=== PATIENT | male | born 1975 | race Caucasian/White ===

== ENCOUNTER 2022-01-01 10:47 | Emergency (ER) | payer MEDICAID ==
[~2022-01-01] VITALS: Ht 170.2 cm; Wt 84.4 kg
[2022-01-01 11:36] VITALS: BP 128/80
[2022-01-01 12:20] LABS: Alcohol, Urine < 3.0 mg/dL (0-10); Amphetamine Screen, Urine POSITIVE (NEGATIVE); Barbiturate Scree,Urine NEGATIVE (NEGATIVE); Benzodiazephine Screen, Urine NEGATIVE (NEGATIVE); Cannabinoid Screen, Urine NEGATIVE (NEGATIVE); Cocaine Screen, Urine NEGATIVE (NEGATIVE); Opiate Scree,Urine NEGATIVE (NEGATIVE); Phencyclidine Screen, Urine NEGATIVE (NEGATIVE)
[2022-01-01 12:28] LABS: Basophils # (auto) 0 10 ^3/uL (0-0.2); Basophils % (auto) 0.4 % (0.0-2.0); Eosinophils # (auto) 0.2 10 ^3/uL (0-0.8); Eosinophils % (auto) 3.1 % (0.0-7.0); Hematocrit 41.7 % (41.0-53.0); Hemoglobin 14.1 g/dL (13.5-17.5); Lymphocytes # (auto) 0.8 10 ^3/uL (0.4-5.4); Lymphocytes % (auto) 12.7 % (10.0-50.0); Mean Corpuscular Hemoglobin 31.7 pg (28.0-32.0); Mean Corpuscular Hgb Conc. 33.7 g/dL (32.0-36.0); Mean Corpuscular Volume 93.9 fL (80.0-100.0); Monocytes # (auto) 0.6 10 ^3/uL (0-1.3); Monocytes % (auto) 9.3 % (0.0-12.0); Neutrophils # (auto) 4.4 10 ^3/uL (1.6-8.6); Neutrophils % (auto) 74.5 % (37.0-80.0); Nucleated Red Blood Cells % 0.1 %; Red Blood Cells 4.44 10^6/uL (4.5-5.90); Red Cell Distribution Width 15.8 % (11.8-14.3)
[2022-01-01 12:43] LABS: Albumin 2.2 g/dL (3.4-5.0); BUN/Creatinine Ratio 7.1; Calcium 7.6 mg/dL (8.5-10.1)
[2022-01-01 12:46] LABS: Total Protein 7.3 g/dL (6.4-8.2)
[2022-01-01 14:05] LABS: Albumin 2.2 g/dL (3.4-5.0)
[2022-01-01 14:08] LABS: Bilirubin, Direct 3.1 mg/dL (0-0.2); Total Protein 7.5 g/dL (6.4-8.2)
== END 2022-01-01 13:46 | disposition home or self-care (01) ==
LOC: ER 10:47
DX: L98.8 Other specified disorders of the skin and subcutaneous tissue (principal); F15.10 Other stimulant abuse, uncomplicated; Z86.19 Personal history of other infectious and parasitic diseases
CPT/HCPCS: 36415; 80053; 80076; 80307; 85025; 86592

== ENCOUNTER → 2022-01-11 | Emergency (ER) | payer MEDICAID ==
[~2022-01-11] VITALS: Ht 175.3 cm; Wt 89.2 kg
[2022-01-11 18:59] VITALS: BP 129/73
== END | disposition left against medical advice (07) ==
LOC: ER 18:35
DX: R21 Rash and other nonspecific skin eruption (principal); R22.43 Localized swelling, mass and lump, lower limb, bilateral; Z53.21 Procedure and treatment not carried out due to patient leaving prior to being seen by health care provider

== ENCOUNTER 2022-02-09 15:20 | Inpatient (IN) | payer MEDICAID ==
[~2022-02-09] VITALS: Ht 172.7 cm; Wt 94.0 kg
[2022-02-09 16:59] LABS: Basophils # (auto) 0.1 10 ^3/uL (0-0.2); Eosinophils # (auto) 0.2 10 ^3/uL (0-0.8); Eosinophils % (auto) 4.9 % (0.0-7.0); Hemoglobin 13.1 g/dL (13.5-17.5); Lymphocytes # (auto) 1.3 10 ^3/uL (0.4-5.4); Lymphocytes % (auto) 25.5 % (10.0-50.0); Mean Corpuscular Hemoglobin 33.6 pg (28.0-32.0); Mean Corpuscular Hgb Conc. 34.4 g/dL (32.0-36.0); Mean Corpuscular Volume 97.6 fL (80.0-100.0); Monocytes # (auto) 0.6 10 ^3/uL (0-1.3); Monocytes % (auto) 11.2 % (0.0-12.0); Neutrophils # (auto) 2.9 10 ^3/uL (1.6-8.6); Neutrophils % (auto) 57.4 % (37.0-80.0); Nucleated Red Blood Cells % 0.1 %; Red Cell Distribution Width 17.3 % (11.8-14.3)
[2022-02-09 17:22] LABS: Albumin 2.2 g/dL (3.4-5.0); Calcium 7.8 mg/dL (8.5-10.1); Potassium 4.2 mmol/L (3.5-5.1)
[2022-02-09 17:24] LABS: BUN/Creatinine Ratio 12.5
[2022-02-09 17:27] LABS: Bilirubin, Total 2.9 mg/dL (0.2-1.0); Total Protein 6.7 g/dL (6.4-8.2)
[2022-02-09] MEDS ORDERED: ACETAMINOPHEN 325 MG TAB PO PRN (19:00)
[2022-02-09] MEDS ORDERED: FUROSEMIDE 40 MG/4 ML VIAL IV ONE (19:30)
[2022-02-09 19:56] LABS: INR 1.39 (0.9-1.15)
[2022-02-10] MEDS: SODIUM CHLOR 0.9% PF (SALINE LOCK) 10ML VIAL/SYR IV SCH ×4 (00:24→22:18)
[2022-02-10 04:00] VITALS: BP 126/93
[2022-02-10 06:49] LABS: Eosinophils # (auto) 0.2 10 ^3/uL (0-0.8); Hemoglobin 11.4 g/dL (13.5-17.5); Lymphocytes # (auto) 1.3 10 ^3/uL (0.4-5.4); Mean Corpuscular Hemoglobin 34.1 pg (28.0-32.0); Monocytes # (auto) 0.5 10 ^3/uL (0-1.3); Red Cell Distribution Width 16.9 % (11.8-14.3); White Blood Cell 4.8 10^3/uL (4.4-10.8)
[2022-02-10 06:51] LABS: Basophils # (auto) 0 10 ^3/uL (0-0.2); Basophils % (auto) 0.9 % (0.0-2.0); Eosinophils % (auto) 3.7 % (0.0-7.0); Hematocrit 31.9 % (41.0-53.0); Lymphocytes % (auto) 27.7 % (10.0-50.0); Mean Corpuscular Hgb Conc. 35.7 g/dL (32.0-36.0); Mean Corpuscular Volume 95.4 fL (80.0-100.0); Monocytes % (auto) 11.2 % (0.0-12.0); Neutrophils # (auto) 2.7 10 ^3/uL (1.6-8.6); Neutrophils % (auto) 56.5 % (37.0-80.0); Nucleated Red Blood Cells % 0.1 %; Red Blood Cells 3.34 10^6/uL (4.5-5.90)
[2022-02-10 06:52] LABS: Albumin 1.9 g/dL (3.4-5.0); Calcium 7.7 mg/dL (8.5-10.1); Potassium 3.5 mmol/L (3.5-5.1)
[2022-02-10 06:55] LABS: Bilirubin, Total 2.9 mg/dL (0.2-1.0); Total Protein 5.9 g/dL (6.4-8.2)
[2022-02-10 08:40] VITALS: BP 130/79
[2022-02-10 13:00] VITALS: BP 125/80
[2022-02-10 17:27] VITALS: BP 125/79
[2022-02-10 22:00] VITALS: BP 135/87
[2022-02-11 05:00] VITALS: BP 133/82
[2022-02-11] MEDS: SODIUM CHLOR 0.9% PF (SALINE LOCK) 10ML VIAL/SYR IV SCH ×3 (05:21→22:34)
[2022-02-11] MEDS ORDERED: PENICILLIN G BENZ 1200000 UNITS/2 ML SYRG IM ONE (08:30)
[2022-02-11 09:08] VITALS: BP 118/75
[2022-02-11 09:09] LABS: Basophils # (auto) 0.1 10 ^3/uL (0-0.2); Basophils % (auto) 1.2 % (0.0-2.0); Eosinophils # (auto) 0.2 10 ^3/uL (0-0.8); Eosinophils % (auto) 4.3 % (0.0-7.0); Hematocrit 34.7 % (41.0-53.0); Hemoglobin 12.1 g/dL (13.5-17.5); Lymphocytes # (auto) 0.9 10 ^3/uL (0.4-5.4); Mean Corpuscular Hemoglobin 33.5 pg (28.0-32.0); Mean Corpuscular Hgb Conc. 34.9 g/dL (32.0-36.0); Monocytes # (auto) 0.4 10 ^3/uL (0-1.3); Monocytes % (auto) 9.4 % (0.0-12.0); Neutrophils # (auto) 2.9 10 ^3/uL (1.6-8.6); Neutrophils % (auto) 64.1 % (37.0-80.0); Nucleated Red Blood Cells % 0.1 %; Red Blood Cells 3.62 10^6/uL (4.5-5.90); Red Cell Distribution Width 16.6 % (11.8-14.3); White Blood Cell 4.5 10^3/uL (4.4-10.8)
[2022-02-11 09:29] LABS: INR 1.44 (0.9-1.15); Partial Thromboplastin Time 38.5 sec (24.6-33.4)
[2022-02-11 09:33] LABS: Albumin 1.9 g/dL (3.4-5.0); Calcium 7.6 mg/dL (8.5-10.1); Potassium 3.6 mmol/L (3.5-5.1)
[2022-02-11 09:38] LABS: BUN/Creatinine Ratio 15.2; Bilirubin, Total 3.1 mg/dL (0.2-1.0); Total Protein 6.2 g/dL (6.4-8.2)
[2022-02-11 13:00] VITALS: BP 127/80
[2022-02-11] MEDS: ACYCLOVIR 400 MG TAB PO SCH ×2 (14:19→22:35)
[2022-02-11] MEDS: traMADol HCL 50 MG TAB PO PRN (14:19)
[2022-02-11] MEDS: LACTULOSE 20Gm/30ML SOLN PO SCH ×2 (14:20→22:35)
[2022-02-11 17:17] VITALS: BP 145/83
[2022-02-11] MEDS ORDERED: guaiFENesin-DM 100/10mg/5ml SYR PO PRN (20:45)
[2022-02-11 22:00] VITALS: BP 119/85
[2022-02-12 05:00] VITALS: BP 130/74
[2022-02-12 05:34] LABS: Basophils # (auto) 0 10 ^3/uL (0-0.2); Basophils % (auto) 0.9 % (0.0-2.0); Eosinophils # (auto) 0.2 10 ^3/uL (0-0.8); Eosinophils % (auto) 3.7 % (0.0-7.0); Hematocrit 34.1 % (41.0-53.0); Hemoglobin 12.1 g/dL (13.5-17.5); Lymphocytes # (auto) 1.3 10 ^3/uL (0.4-5.4); Mean Corpuscular Hemoglobin 33.7 pg (28.0-32.0); Mean Corpuscular Hgb Conc. 35.5 g/dL (32.0-36.0); Mean Corpuscular Volume 94.9 fL (80.0-100.0); Monocytes # (auto) 0.5 10 ^3/uL (0-1.3); Monocytes % (auto) 10.6 % (0.0-12.0); Neutrophils # (auto) 2.7 10 ^3/uL (1.6-8.6); Neutrophils % (auto) 57.8 % (37.0-80.0); Nucleated Red Blood Cells % 0.2 %; Red Cell Distribution Width 16.3 % (11.8-14.3); White Blood Cell 4.7 10^3/uL (4.4-10.8)
[2022-02-12] MEDS: SODIUM CHLOR 0.9% PF (SALINE LOCK) 10ML VIAL/SYR IV SCH ×3 (05:40→22:11)
[2022-02-12] MEDS: ACYCLOVIR 400 MG TAB PO SCH ×3 (05:41→22:15)
[2022-02-12 05:45] LABS: Albumin 1.9 g/dL (3.4-5.0); Calcium 7.7 mg/dL (8.5-10.1); Magnesium 2.2 mg/dL (1.6-2.6); Potassium 3.8 mmol/L (3.5-5.1)
[2022-02-12 05:48] LABS: Bilirubin, Total 3.5 mg/dL (0.2-1.0)
[2022-02-12 09:00] VITALS: BP 122/83
[2022-02-12] MEDS: traMADol HCL 50 MG TAB PO PRN ×2 (09:31→23:18)
[2022-02-12] MEDS: LACTULOSE 20Gm/30ML SOLN PO SCH ×2 (09:32→22:15)
[2022-02-12 12:45] VITALS: BP 118/83
[2022-02-12 17:25] VITALS: BP 164/83
[2022-02-12 21:16] VITALS: BP 133/89
[2022-02-13 05:00] VITALS: BP 132/87
[2022-02-13] MEDS: ACYCLOVIR 400 MG TAB PO SCH ×3 (05:42→22:02)
[2022-02-13] MEDS: SODIUM CHLOR 0.9% PF (SALINE LOCK) 10ML VIAL/SYR IV SCH ×3 (05:42→22:02)
[2022-02-13 09:00] VITALS: BP 120/88
[2022-02-13] MEDS: LACTULOSE 20Gm/30ML SOLN PO SCH ×2 (10:15→22:02)
[2022-02-13 13:00] VITALS: BP 123/80
[2022-02-13 17:00] VITALS: BP 133/89
[2022-02-13] MEDS ORDERED: LIDOCAINE VISCOUS 2% 15ML UD MT PRN (21:00)
[2022-02-13 22:00] VITALS: BP 127/79
[2022-02-14 05:00] VITALS: BP 138/99
[2022-02-14] MEDS: ACYCLOVIR 400 MG TAB PO SCH ×2 (05:52→14:00)
[2022-02-14] MEDS: SODIUM CHLOR 0.9% PF (SALINE LOCK) 10ML VIAL/SYR IV SCH ×2 (05:52→14:00)
[2022-02-14 08:10] VITALS: BP 116/70
[2022-02-14] MEDS: LACTULOSE 20Gm/30ML SOLN PO SCH (09:22)
[2022-02-14 11:23] LABS: Albumin 1.8 g/dL (3.4-5.0); Anion Gap 7 (5-15); Blood Urea Nitrogen 6 mg/dL (7-18); Calcium 7.5 mg/dL (8.5-10.1); Carbon Dioxide 25 mmol/L (21-32); Chloride 103 mmol/L (98-107); Glucose 98 mg/dL (74-106); Potassium 3.8 mmol/L (3.5-5.1); Sodium 135 mmol/L (136-145)
[2022-02-14 11:26] LABS: Alanine Aminotransferase 31 U/L (16-61); Aspartate Aminotransferase 69 U/L (15-37); BUN/Creatinine Ratio 10.9; GFR African American 207 mL/min; GFR Non-African American 171 mL/min
[2022-02-14 11:29] LABS: Alkaline Phosphatase 126 U/L (45-117); Bilirubin, Direct 1.9 mg/dL (0-0.2); Bilirubin, Total 2.8 mg/dL (0.2-1.0); Total Protein 5.8 g/dL (6.4-8.2)
[2022-02-14 12:15] VITALS: BP 110/68
[2022-02-14] MEDS ORDERED: LACT10SO3 PO (13:10)
[2022-02-14 13:37] LABS: Hepatitis B Surface Antibody Negative (Negative)
[2022-02-14 14:04] LABS: Hepatitis A Total Antibody Positive (Negative)
[2022-02-14 14:59] VITALS: BP 110/68
[2022-02-14 16:05] VITALS: BP 119/82
[2022-02-15 09:07] LABS: Hepatitis C Antibody Positive (Negative)
== END 2022-02-14 17:59 | disposition home or self-care (01) | DRG 280 ==
LOC: ER 15:20 → OVERFLOW 18:59 → WEST WING 02-10 03:53
PROVIDERS: ADMIT Nurse Practitioner Family; ATTEND Internal Medicine
PROC: 0W9G3ZZ Drainage of Peritoneal Cavity, Percutaneous Approach (ICD-10-PCS; principal; 2022-02-13)
DX: K76.82 Hepatic encephalopathy (principal); K70.31 Alcoholic cirrhosis of liver with ascites; E43 Unspecified severe protein-calorie malnutrition; D69.6 Thrombocytopenia, unspecified; J90 Pleural effusion, not elsewhere classified; E83.51 Hypocalcemia; B19.20 Unspecified viral hepatitis C without hepatic coma; E66.01 Morbid (severe) obesity due to excess calories; E87.70 Fluid overload, unspecified; J98.11 Atelectasis; Z68.31 Body mass index [BMI] 31.0-31.9, adult; F15.10 Other stimulant abuse, uncomplicated; R73.9 Hyperglycemia, unspecified; B00.9 Herpesviral infection, unspecified; Z20.822 Contact with and (suspected) exposure to COVID-19; Z71.51 Drug abuse counseling and surveillance of drug abuser
CPT/HCPCS: 36415; 71045; 74176; 80053; 80320; 82105; 82140; 82248; 83735; 83880; 84484; 85025; 85610; 85730; 86592; 86703; 86704; 86706; 86708; 86803; 87081; 87205; 87340; 87426; 87880; 89051; 99291; G0378; J0561

== ENCOUNTER 2022-02-26 08:29 | Inpatient (IN) | payer MEDICAID ==
[~2022-02-26] VITALS: Ht 165.1 cm; Wt 90.0 kg
[~2022-02-26 08:29] MED LIST: LACT10SO3 PO
[2022-02-26 09:38] LABS: Basophils # (auto) 0.1 10 ^3/uL (0-0.2); Basophils % (auto) 1.3 % (0.0-2.0); Eosinophils # (auto) 0.2 10 ^3/uL (0-0.8); Eosinophils % (auto) 5.8 % (0.0-7.0); Hematocrit 35.6 % (41.0-53.0); Hemoglobin 12.1 g/dL (13.5-17.5); Lymphocytes % (auto) 24.5 % (10.0-50.0); Mean Corpuscular Hemoglobin 32.9 pg (28.0-32.0); Mean Corpuscular Volume 96.5 fL (80.0-100.0); Monocytes # (auto) 0.5 10 ^3/uL (0-1.3); Monocytes % (auto) 11.5 % (0.0-12.0); Neutrophils # (auto) 2.3 10 ^3/uL (1.6-8.6); Neutrophils % (auto) 56.9 % (37.0-80.0); Nucleated Red Blood Cells % 0.1 %; Red Blood Cells 3.69 10^6/uL (4.5-5.90); Red Cell Distribution Width 14.4 % (11.8-14.3)
[2022-02-26] MEDS ORDERED: SODIUM CHLORIDE 0.9% 1,000 ML IV ONE (09:45)
[2022-02-26 10:45] LABS: INR 1.5 (0.9-1.15); Partial Thromboplastin Time 35.3 sec (24.6-33.4)
[2022-02-26 10:52] LABS: Urine Blood Negative /uL (Negative); Urine Specific Gravity 1.029 (1.001-1.035)
[2022-02-26 11:41] LABS: Potassium 3.9 mmol/L (3.5-5.1)
[2022-02-26 11:46] LABS: Magnesium 1.8 mg/dL (1.6-2.6)
[2022-02-26 11:48] LABS: Albumin 1.9 g/dL (3.4-5.0); BUN/Creatinine Ratio 15.4; Bilirubin, Total 2.5 mg/dL (0.2-1.0); Calcium 7.8 mg/dL (8.5-10.1); Total Protein 5.7 g/dL (6.4-8.2)
[2022-02-26] MEDS ORDERED: LACTULOSE 20Gm/30ML SOLN PO ONE (12:30)
[2022-02-26] MEDS ORDERED: DOCUSATE SOD 100 MG CAP PO PRN (14:45)
[2022-02-26] MEDS ORDERED: CALCIUM GLUC 1,000mg/50ml-NS 50 ML IV ONE (14:45)
[2022-02-26] MEDS ORDERED: ONDANSETRON HCL 4 MG/2 ML VIAL IV PRN (14:45)
[2022-02-26] MEDS ORDERED: ACETAMINOPHEN 325 MG TAB PO PRN (14:45)
[2022-02-26] MEDS ORDERED: HYDROcodone-ACET 5/325MG TAB PO PRN (14:45)
[2022-02-26] MEDS: MAGNESIUM SULFATE 1GM/100ML 100 ML IV SCH ×2 (17:43→18:52)
[2022-02-26] MEDS: LACTULOSE 20Gm/30ML SOLN PO SCH (21:11)
[2022-02-26 22:00] VITALS: BP 121/81
[2022-02-27 05:00] VITALS: BP 127/77
[2022-02-27 06:42] LABS: Basophils # (auto) 0 10 ^3/uL (0-0.2); Basophils % (auto) 0.6 % (0.0-2.0); Eosinophils # (auto) 0.2 10 ^3/uL (0-0.8); Eosinophils % (auto) 2.7 % (0.0-7.0); Hematocrit 32.2 % (41.0-53.0); Hemoglobin 11.1 g/dL (13.5-17.5); Lymphocytes # (auto) 1.1 10 ^3/uL (0.4-5.4); Lymphocytes % (auto) 18.5 % (10.0-50.0); Mean Corpuscular Hemoglobin 33.1 pg (28.0-32.0); Mean Corpuscular Hgb Conc. 34.5 g/dL (32.0-36.0); Mean Corpuscular Volume 95.9 fL (80.0-100.0); Monocytes # (auto) 0.5 10 ^3/uL (0-1.3); Monocytes % (auto) 8.2 % (0.0-12.0); Nucleated Red Blood Cells % 0.1 %; Red Blood Cells 3.36 10^6/uL (4.5-5.90); Red Cell Distribution Width 14.6 % (11.8-14.3); White Blood Cell 5.7 10^3/uL (4.4-10.8)
[2022-02-27 07:18] LABS: Potassium 4.1 mmol/L (3.5-5.1)
[2022-02-27 07:31] LABS: Albumin 1.8 g/dL (3.4-5.0); Bilirubin, Total 2.9 mg/dL (0.2-1.0); Calcium 7.6 mg/dL (8.5-10.1); Total Protein 5.6 g/dL (6.4-8.2)
[2022-02-27 08:42] VITALS: BP 123/66
[2022-02-27] MEDS: LACTULOSE 20Gm/30ML SOLN PO SCH ×2 (10:33→21:40)
[2022-02-27] MEDS: FUROSEMIDE 40 MG TAB PO SCH (12:26)
[2022-02-27 14:33] VITALS: BP 113/73
[2022-02-27 15:11] LABS: Basophils # (auto) 0 10 ^3/uL (0-0.2); Basophils % (auto) 0.7 % (0.0-2.0); Eosinophils # (auto) 0.2 10 ^3/uL (0-0.8); Eosinophils % (auto) 2.1 % (0.0-7.0); Hematocrit 38.9 % (41.0-53.0); Hemoglobin 13.6 g/dL (13.5-17.5); Lymphocytes # (auto) 1.6 10 ^3/uL (0.4-5.4); Lymphocytes % (auto) 21.8 % (10.0-50.0); Mean Corpuscular Hemoglobin 33.7 pg (28.0-32.0); Mean Corpuscular Volume 96.2 fL (80.0-100.0); Monocytes # (auto) 0.5 10 ^3/uL (0-1.3); Monocytes % (auto) 7.4 % (0.0-12.0); Neutrophils # (auto) 4.9 10 ^3/uL (1.6-8.6); Nucleated Red Blood Cells % 0.1 %; Red Blood Cells 4.05 10^6/uL (4.5-5.90); White Blood Cell 7.2 10^3/uL (4.4-10.8)
[2022-02-27 15:29] LABS: Albumin 2.2 g/dL (3.4-5.0); Calcium 8.1 mg/dL (8.5-10.1); Potassium 3.8 mmol/L (3.5-5.1)
[2022-02-27 15:32] LABS: BUN/Creatinine Ratio 14.7; Bilirubin, Total 3.1 mg/dL (0.2-1.0)
[2022-02-27 17:00] VITALS: BP 125/79
[2022-02-27] MEDS: SPIRONOLACTONE 25 MG TAB PO SCH (17:51)
[2022-02-27 22:00] VITALS: BP 129/77
[2022-02-28 05:00] VITALS: BP 114/79
[2022-02-28] MEDS: SPIRONOLACTONE 25 MG TAB PO SCH ×2 (06:00→17:58)
[2022-02-28 08:00] VITALS: BP 118/75
[2022-02-28] MEDS: LACTULOSE 20Gm/30ML SOLN PO SCH ×2 (10:22→21:30)
[2022-02-28] MEDS: FUROSEMIDE 40 MG TAB PO SCH (10:22)
[2022-02-28 12:00] VITALS: BP 114/84
[2022-02-28 16:00] VITALS: BP 152/83
[2022-02-28 22:00] VITALS: BP 118/73
[2022-03-01 05:00] VITALS: BP 125/82
[2022-03-01] MEDS: SPIRONOLACTONE 25 MG TAB PO SCH ×2 (06:02→18:17)
[2022-03-01 06:06] LABS: Basophils # (auto) 0.1 10 ^3/uL (0-0.2); Basophils % (auto) 1.2 % (0.0-2.0); Eosinophils # (auto) 0.3 10 ^3/uL (0-0.8); Eosinophils % (auto) 5.2 % (0.0-7.0); Hemoglobin 11.5 g/dL (13.5-17.5); Lymphocytes # (auto) 1.4 10 ^3/uL (0.4-5.4); Lymphocytes % (auto) 27.3 % (10.0-50.0); Mean Corpuscular Hemoglobin 33.2 pg (28.0-32.0); Mean Corpuscular Hgb Conc. 34.8 g/dL (32.0-36.0); Mean Corpuscular Volume 95.4 fL (80.0-100.0); Monocytes # (auto) 0.6 10 ^3/uL (0-1.3); Neutrophils # (auto) 2.8 10 ^3/uL (1.6-8.6); Neutrophils % (auto) 55.3 % (37.0-80.0); Nucleated Red Blood Cells % 0.2 %; Red Blood Cells 3.46 10^6/uL (4.5-5.90); Red Cell Distribution Width 14.1 % (11.8-14.3)
[2022-03-01 06:21] LABS: BUN/Creatinine Ratio 16.7; Calcium 7.7 mg/dL (8.5-10.1); Magnesium 1.7 mg/dL (1.6-2.6); Potassium 3.8 mmol/L (3.5-5.1)
[2022-03-01] MEDS ORDERED: LIDOCAINE 1% (LOCAL ANESTH.) PF 5ml SDV IJ ONE (07:45)
[2022-03-01 09:00] VITALS: BP 116/73
[2022-03-01] MEDS: LACTULOSE 20Gm/30ML SOLN PO SCH ×2 (10:44→22:00)
[2022-03-01] MEDS: FUROSEMIDE 40 MG TAB PO SCH (10:45)
[2022-03-01 13:00] VITALS: BP 126/82
[2022-03-01 17:00] VITALS: BP 110/85
[2022-03-01 22:00] VITALS: BP 116/74
[2022-03-02 05:00] VITALS: BP 106/69
[2022-03-02] MEDS: SPIRONOLACTONE 25 MG TAB PO SCH ×2 (06:00→18:00)
[2022-03-02 09:00] VITALS: BP 119/70
[2022-03-02] MEDS: FUROSEMIDE 40 MG TAB PO SCH (09:57)
[2022-03-02] MEDS: LACTULOSE 20Gm/30ML SOLN PO SCH (09:59)
[2022-03-02] MEDS ORDERED: FURO40TA4 PO (11:07)
[2022-03-02] MEDS ORDERED: SPIR25TA PO (11:07)
[2022-03-02 13:00] VITALS: BP 100/72
[2022-03-02 17:00] VITALS: BP 101/66
[2022-03-02 17:41] VITALS: BP 119/70
== END 2022-03-02 18:40 | disposition home or self-care (01) | DRG 280 ==
LOC: ER 08:29 → OVERFLOW 14:33 → EAST 18:59
PROVIDERS: ADMIT Nurse Practitioner Family; ATTEND Internal Medicine
PROC: 0W9G3ZZ Drainage of Peritoneal Cavity, Percutaneous Approach (ICD-10-PCS; principal; 2022-03-01)
DX: K70.31 Alcoholic cirrhosis of liver with ascites (principal); D61.818 Other pancytopenia; E88.09 Other disorders of plasma-protein metabolism, not elsewhere classified; B19.20 Unspecified viral hepatitis C without hepatic coma; F15.10 Other stimulant abuse, uncomplicated; Z20.822 Contact with and (suspected) exposure to COVID-19
CPT/HCPCS: 36415; 49083; 76705; 80048; 80053; 81001; 82140; 83690; 83735; 83986; 85025; 85610; 85730; 87205; 87426; 89051; 96361; 96365; G0378; J2405

== ENCOUNTER 2022-09-03 14:55 | Emergency (ER) | payer MEDICAID ==
[~2022-09-03] VITALS: Ht 170.2 cm; Wt 59.0 kg
[~2022-09-03 14:55] MED LIST changes: +FURO40TA4 PO; +SPIR25TA PO
[2022-09-03] MEDS ORDERED: PANTOPRAZOLE 40mg/50ML NS AE 50 ML IV ONE (15:15)
[2022-09-03] MEDS ORDERED: PANTOPRAZOLE 80 MG in SODIUM CHL 0.9% 100 ML IV ONE (15:15)
[2022-09-03] MEDS ORDERED: OCTREOTIDE ACETATE 100 MCG in SODIUM CHL 0.9% 50 ML IV ONE (15:15)
[2022-09-03] MEDS: OCTREOTIDE ACETATE 500 MCG in SODIUM CHL 0.9% 99 ML IV SCH (15:30)
[2022-09-03 15:33] LABS: Basophils # (auto) 0.1 10 ^3/uL (0-0.2); Eosinophils # (auto) 0.3 10 ^3/uL (0-0.8); Eosinophils % (auto) 5.7 % (0.0-7.0); Hematocrit 27.3 % (41.0-53.0); Hemoglobin 9.3 g/dL (13.5-17.5); Lymphocytes # (auto) 1.3 10 ^3/uL (0.4-5.4); Lymphocytes % (auto) 25.7 % (10.0-50.0); Mean Corpuscular Hemoglobin 31.6 pg (28.0-32.0); Mean Corpuscular Hgb Conc. 34.1 g/dL (32.0-36.0); Mean Corpuscular Volume 92.7 fL (80.0-100.0); Monocytes # (auto) 0.4 10 ^3/uL (0-1.3); Monocytes % (auto) 8.6 % (0.0-12.0); Red Blood Cells 2.95 10^6/uL (4.5-5.90); Red Cell Distribution Width 16.2 % (11.8-14.3)
[2022-09-03] MEDS ORDERED: PANTOPRAZOLE 40 MG/10 ML VIAL INJ IV ONE (15:36)
[2022-09-03 15:46] LABS: Albumin 1.8 g/dL (3.4-5.0); Calcium 6.9 mg/dL (8.5-10.1); Potassium 3.3 mmol/L (3.5-5.1)
[2022-09-03 15:50] LABS: BUN/Creatinine Ratio 11.3 (10.0-20.0); Bilirubin, Total 1.1 mg/dL (0.2-1.0); Total Protein 4.7 g/dL (6.4-8.2)
[2022-09-03 15:52] LABS: INR 1.51 (0.9-1.15)
[2022-09-03] MEDS ORDERED: IOHEXOL 300 MG/ML 100ML BOTTLE IJ ONE (16:03)
[2022-09-04] MEDS: OCTREOTIDE ACETATE 500 MCG in SODIUM CHL 0.9% 99 ML IV SCH (01:30)
[2022-09-04 03:01] VITALS: BP 109/62
[2022-09-21] MEDS ORDERED: MULTTAB99 PO (13:49)
[2022-09-21] MEDS ORDERED: PANT40TA2 PO (13:49)
[2022-09-21] MEDS ORDERED: SUCR1SUS26 PO (13:49)
[2022-09-21] MEDS ORDERED: SPIR50TA2 PO (13:49)
[2022-09-21] MEDS ORDERED: FURO1TAB33 PO (13:49)
[2022-09-21] MEDS ORDERED: FER325T PO (13:50)
[2022-09-21] MEDS ORDERED: LACT10SO3 PO (13:56)
== END 2022-09-04 03:36 ==
LOC: ER 14:55 → EDBD 14:55 → ER 09-04 03:36
DX: K92.2 Gastrointestinal hemorrhage, unspecified (principal); E72.20 Disorder of urea cycle metabolism, unspecified; K70.31 Alcoholic cirrhosis of liver with ascites; F15.90 Other stimulant use, unspecified, uncomplicated; F19.90 Other psychoactive substance use, unspecified, uncomplicated; F10.90 Alcohol use, unspecified, uncomplicated; Z79.899 Other long term (current) drug therapy
CPT/HCPCS: 36415; 71045; 74177; 80053; 80320; 82140; 83690; 85025; 85610; 85730; 86850; 86900; 86901; 96365; 96366; 96368; 99285; C9113; Q9967